=== PATIENT | female | born 2000 | race Two or more races ===

== ENCOUNTER 2023-12-11 15:57 | Emergency (ER) | payer OTHER, SELFPAY ==
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
[2023-12-11 16:38] VITALS: BP 108/69; PULSE 110; RESP 18; TEMP 37.3; O2SAT 99
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
[2023-12-11 17:20] LABS: MANUAL DIFF FLAG NO
[2023-12-11 17:25] LABS: Basophils Percent Auto 0.1 % (0-2); Eosinophils Percent Auto 0.2 % (0-4); Hemoglobin 11.9 g/dl (12.0-16.0); Imm Gran Abs Auto 0.03 X10*3/uL (0.00-0.03); Imm Gran Pct Auto 0.3 % (0.0-0.4); Lymphocytes Absolute Auto 1.1 X10*3/uL (1.2-4.9); Lymphocytes Percent Auto 12.7 % (20-40); Mean Corpuscular HGB Conc 36.1 g/dl (31.0-35.0); Mean Corpuscular Hemoglobin 31.2 pg (27.0-33.0); Mean Corpuscular Volume 86.6 fL (80.0-98.0); Mean Platelet Volume 10.8 fL (9.4-12.3); Monocytes Absolute Auto 0.7 X10*3/uL (0.1-1.2); Monocytes Percent Auto 7.6 % (2-11); Neutrophils Absolute Auto 6.8 x10*3/uL (2.0-8.3); Neutrophils Percent Auto 79.1 % (45-73); Platelet Count 224 X10*3/uL (160-400); Red Blood Count 3.81 X10*6/uL (4.20-5.50); Red Cell Distribution Width 11.9 % (11.0-16.0); White Blood Count 8.6 X10*3/uL (4.8-10.8)
[2023-12-11 17:42] LABS: Alanine Aminotransferase 22 U/L (0-31); Albumin Level 4.2 g/dL (3.5-5.0); Alkaline Phosphatase 62 U/L (39-117); Anion Gap 11 (12-20); Aspartate Amino Transferase 27 U/L (5-31); Bilirubin Total 0.4 mg/dL (0.0-1.0); Blood Urea Nitrogen 5 mg/dL (9-16); Calcium 8.8 mg/dL (8.4-10.2); Carbon Dioxide 23 mmol/L (22-29); Chloride 105 mmol/L (96-108); Creatinine Clr Calc Pharmacy 91.8; Estimated Glomerular Filt Rate > 60; Glucose Random 93 mg/dL (60-115); HCG Quantitative < 2 mIU/mL; Sodium 136 mmol/L (135-145); Total Protein 7.6 g/dL (6.5-8.0)
[2023-12-11 21:25] VITALS: BP 111/66; PULSE 97; RESP 16; TEMP 36.9; O2SAT 99
[2023-12-11 22:09] VITALS: BP 119/75; PULSE 87; RESP 16; TEMP 37.2; O2SAT 99
[2023-12-11] MEDS: 0.9 % Sodium Chloride 1,000 ML 999 ML IVCONT (22:23)
[2023-12-11 22:27] VITALS: BP 110/75; PULSE 94; RESP 18; O2SAT 99
[2023-12-11] MEDS: Ketorolac Tromethamine 30 MG/ML VIAL IVPUSH (23:05)
[2023-12-11] MEDS: Metoclopramide HCl 10 MG/2 ML VIAL IVPUSH (23:05)
[2023-12-11] MEDS: diphenhydrAMINE HCL 50 MG/ML VIAL IVPUSH (23:05)
[2023-12-12 00:18] VITALS: BP 97/54; PULSE 94; RESP 15; TEMP 36.7; O2SAT 99
[2023-12-12 01:36] VITALS: BP 97/54; PULSE 94; RESP 15; TEMP 36.7; O2SAT 99
== END 2023-12-12 01:37 | disposition home or self-care (01) ==
PROVIDERS: Registered Nurse Emergency; Emergency Provider Emergency Medicine; PCP Internal Medicine
DX: G43.909 Migraine, unspecified, not intractable, without status migrainosus (principal); H53.143 Visual discomfort, bilateral; Z79.899 Other long term (current) drug therapy
CPT/HCPCS: 36415; 70450; 80053; 84702; 85025; 96361; 96374; 96375; 99285; J1200; J1885; J2765

== ENCOUNTER 2024-12-05 07:55 | Emergency (ER) | payer OTHER, SELFPAY ==
--- NOTE | ~2024-12-05 | US_ITS ---
EXAMINATION: US PELVIC DUPLEX COMPLETE, US PELVIS HISTORY: RLQ pain, r/o torsion COMPARISON: There are no prior studies available for comparison. TECHNIQUE: Transabdominal real-time 2D zavala-scale ultrasound was performed. The patient declined endovaginal examination. FINDINGS: Uterus: The uterus is normal in size, measuring 9.5 x 2.6 x 3.8 cm. Myometrium has a normal echotexture. No fibroids are identified. Endometrium: The endometrial stripe measures 3 mm in thickness. Right ovary: The right ovary is not visualized. Left ovary: The left ovary measures 2.3 x 2.5 x 2.6 cm. The left ovary is normal in size and echotexture. Normal color and spectral Doppler waveforms are noted in the left ovarian artery and vein. Pelvic fluid: none. US/US pelvic complete IMPRESSION: 1. The right ovary is not identified. The patient declined endovaginal examination. Right ovarian torsion is not excluded. 2. Unremarkable appearing uterus and left ovary which demonstrates normal vascular flow. Electronically signed by: Korey Gooden MD 12/05/2024 10:12 AM EDT
--- NOTE | ~2024-12-05 | CT_ITS ---
EXAMINATION: CT ABDOMEN AND PELVIS WITH CONTRAST CLINICAL INFORMATION: Abdominal pain, right lower quadrant. COMPARISON: None available. TECHNIQUE: Multidetector volumetric images were obtained from the superior aspect of the liver through the pubic symphysis following administration 85 mL of Omnipaque 350 intravenous contrast. Sagittal and coronal reformatted images were obtained on the technologist's workstation. Oral contrast: No This CT examination was performed using dose optimization techniques as appropriate, variously including the following: *Automated exposure control *Adjustment of mA and/or kV according to patient size (this includes techniques or standardized protocols for targeted exams where dose is matched to indication/reason for exam; i.e. extremities or head) *Use of iterative reconstruction technique DLP: 268 mGy-cm FINDINGS: LUNG BASES: No acute airspace disease. LIVER, GALLBLADDER, AND BILIARY TREE: Liver measures 15 cm. No solid or cystic lesion. Main portal vein and hepatic veins and intrahepatic portion of the IVC are patent. Gallbladder is contracted. No pericholecystic fluid collection or gallbladder wall thickening. No intrahepatic or extrahepatic biliary ductal dilatation. PANCREAS: No solid or cystic lesion. No peripancreatic fluid collection. No main pancreatic ductal dilatation. SPLEEN: 9 cm. No solid or cystic lesion. ADRENAL GLANDS: No nodular lesion. KIDNEYS AND URETERS: Right kidney: Decreased enhancement pattern of the renal parenchyma with respect to the contralateral side. There is mild dilatation of the pelvicalyceal system and right ureter. There is a 2 mm calculus in the distal right ureter near the vesicoureteral junction. No renal mass. Left kidney: Normal. BLADDER: Fluid-filled. GASTROINTESTINAL TRACT: Appendix is normal. Collapsed appearance of the large intestine. Superimposed intestinal wall thickening on the large intestine cannot be excluded. No intestinal obstruction pattern. Small amount of ascites in the cul-de-sac. No peripheral enhancing fluid collection in the peritoneal cavity. No pneumoperitoneum. No pneumatosis intestinalis. ABDOMINAL WALL: Metallic piercing in the umbilical's without hernia. LYMPH NODES: No mesenteric or retroperitoneal lymphadenopathy. VASCULAR: No aneurysm or dissection, abdominal aorta. No calcified plaque. PELVIC VISCERA: Dominant follicle in the right adnexa. OSSEOUS STRUCTURES: Sclerosis and the sacroiliac joints. Limbus vertebra, L5. No acute fracture or listhesis. No acute fracture or dislocation in either hip. CT/CT abdomen pelvis w IV con IMPRESSION: 2 mm obstructing calculus distal right ureter resulting in mild hydronephrosis and decreased enhancement pattern of the right kidney. Small amount of free fluid in the cul-de-sac possibly physiologic. Dominant follicle right ovary. Collapsed appearance of the large intestine. Inflammatory bowel disease cannot be excluded.. Fleischner guidelines were followed. Electronically signed by: Warner Mcnair MD 12/05/2024 10:53 AM EDT
--- NOTE | ~2024-12-05 | US_ITS ---
EXAMINATION: US PELVIC DUPLEX COMPLETE, US PELVIS HISTORY: RLQ pain, r/o torsion COMPARISON: There are no prior studies available for comparison. TECHNIQUE: Transabdominal real-time 2D zavala-scale ultrasound was performed. The patient declined endovaginal examination. FINDINGS: Uterus: The uterus is normal in size, measuring 9.5 x 2.6 x 3.8 cm. Myometrium has a normal echotexture. No fibroids are identified. Endometrium: The endometrial stripe measures 3 mm in thickness. Right ovary: The right ovary is not visualized. Left ovary: The left ovary measures 2.3 x 2.5 x 2.6 cm. The left ovary is normal in size and echotexture. Normal color and spectral Doppler waveforms are noted in the left ovarian artery and vein. Pelvic fluid: none. US/US pelvic ovarian doppler IMPRESSION: 1. The right ovary is not identified. The patient declined endovaginal examination. Right ovarian torsion is not excluded. 2. Unremarkable appearing uterus and left ovary which demonstrates normal vascular flow. Electronically signed by: Korey Gooden MD 12/05/2024 10:12 AM EDT
[2024-12-05 08:06] VITALS: BP 118/87; PULSE 103; RESP 20; TEMP 36.3; O2SAT 100; BMI 21.7
--- NOTE | 2024-12-05 08:10 | ED.ABDPAIN ---
HPI - Abdominal Pain General Chief Complaint: Abdominal Pain Stated Complaint: Abdominal Pain Time Seen by Provider: 12/05/24 08:03 Source: patient Mode of arrival: ambulatory Limitations: no limitations History of Present Illness ED Provider: HPI narrative: 24-year-old otherwise healthy no prior history of surgeries, presenting with right lower quadrant pain, nausea no vomiting, currently on her period, no diarrhea no vaginal bleeding or discharge, no fevers or chills, pain is localized to right lower quadrant. Related Data Previous Rx's ?Medication ?Instructions ?Recorded ketorolac 10 mg tablet 10 mg PO Q8H PRN pain #10 tabs 12/12/23 metoclopramide HCl 5 mg tablet 5 mg PO TID PRN nausea and 12/12/23 (Reglan) vomiting #10 tabs acetaminophen 500 mg capsule 1,000 mg (2 x 500 mg) PO Q6H PRN 12/05/24 pain 5 days #20 caps ibuprofen 400 mg tablet 400 mg PO Q6H PRN pain 5 days #20 12/05/24 tabs ondansetron 4 mg disintegrating 4 mg PO Q8H PRN nausea and 12/05/24 tablet vomiting #4 tabs Allergies Allergy/AdvReac Type Severity Reaction Status Date / Time No Known Allergies Allergy Verified 12/05/24 08:08 Review of Systems Constitutional: Reports as per [facility] Social History Social History Advance Directives: Yes Advance Directives Information Provided: Yes Advance Directives on File: No Do you have a plan to hurt others: No Plan Physical Exam ED Exam Exam: General: ?Appears of stated age ? ?PERRLA, EOMI, MMM, ? Neck: Supple, no LAD ? ?CV: RRR, no obvious murmurs appreciated ? ?Resp: ?No wheezing rales rhonchi no stridor moving air well ? Abd: ?Bowel sounds are present, tenderness, voluntary guarding right lower quadrant ? ?MSK: FROM, strength 5/5 all extremities ? Skin: Warm, dry, intact, ? ?Neuro: ?Alert and oriented x3, moving upper and lower extremities symmetrically, no obvious facial asymmetry noted, cranial nerves 2-12 intact Vital Signs: Vital Signs - 24 hr 12/05/24 08:06 12/05/24 11:04 Temperature 97.4 F Pulse Rate 103 H 93 Respiratory Rate 20 18 Blood Pressure 118/87 116/79 Pulse Oximetry 100 98 Oxygen Delivery Method Room Air BMI result Body Mass Index 21.7 Medical Decision Making Medical Decision Making [facility] Narrative: 8:11 AM 12/05/2024 (Dr. Gorge Butler): Ovarian pathology versus appendicitis is highest on my differential, possibly ovarian cysts, etc. currently on her. Though we will check for to make sure no -related emergencies, we will medicate for pain, we will obtain imaging both CT and ultrasound for ovarian flow, disposition to be determined 11:03 AM 12/05/2024 (Dr. Gorge Butler): CT with 2 mm you were vesicular junction stone we will await UA we will medicate for pain otherwise anticipating discharge, ultrasound was not able to visualize the ovary but the CT did not no abnormal ovary and there is 2 mm stone which is most likely cause of the symptoms, correlates to location Differential Diagnosis Differential Diagnoses: The differential diagnosis associated with the presentation includes (Appendicitis, ovarian torsion, hemorrhagic cyst, ectopic , pyelonephritis, renal colic) Admission/Observation Consideration of admission/observation: Escalation of care including admission/observation considered Lab Data [facility] Lab Attestation statement: I reviewed the patient's lab results. 12/05/24 08:15 12/05/24 08:15 Labs: Lab Results 12/05/24 Range/Units 08:15 WBC 5.7 (4.8-10.8) X10*3/uL RBC 4.03 L (4.20-5.50) X10*6/uL Hgb 12.6 (12.0-16.0) g/dl Hct 35.2 L (37.0-47.0) % MCV 87.3 (80.0-98.0) fL MCH 31.3 (27.0-33.0) pg MCHC 35.8 H (31.0-35.0) g/dl RDW 11.8 (11.0-16.0) % Plt Count 243 (160-400) X10*3/uL MPV 10.8 (9.4-12.3) fL Immature Gran % (Auto) 0.2 (0.0-0.4) % Neut % (Auto) 53.2 (45-73) % Lymph % (Auto) 35.7 (20-40) % [place] % (Auto) 9.0 (2-11) % Eos % (Auto) 1.9 (0-4) % Baso % (Auto) 0.0 (0-2) % Lymph # (Auto) 2.0 (1.2-4.9) X10*3/uL [place] # (Auto) 0.5 (0.1-1.2) X10*3/uL Eos # (Auto) 0.1 (0.0-0.4) X10*3/uL Baso # (Auto) 0.0 (0.0-0.2) X10*3/uL Abs Immat Gran (auto) 0.01 (0.00-0.03) X10*3/uL Absolute Neuts (auto) 3.0 (2.0-8.3) x10*3/uL Absolute Nucleated RBC 0.000 (0.0-0.012) X10*3/uL Nucleated RBC % (auto) 0.0 (0.0-0.2) /100WBC Sodium 140 (135-145) mmol/L Potassium 3.3 (3.3-5.1) mmol/L Chloride 108 (96-108) mmol/L Carbon Dioxide 24 (22-29) mmol/L Anion Gap 11 L (12-20) BUN 9 (9-16) mg/dL Creatinine 0.75 (0.5-1.4) mg/dL Estim Creat Clear Calc 83.7 Estimated GFR > 60 Random Glucose 125 H (60-115) mg/dL Lactic Acid 1.5 (0.5-2.0) mmol/L Calcium 9.0 (8.4-10.2) mg/dL Total Bilirubin 0.5 (0.0-1.0) mg/dL AST 21 (5-31) U/L ALT 16 (0-31) U/L Alkaline Phosphatase 56 (39-117) U/L Total Protein 7.5 (6.5-8.0) g/dL Albumin 4.6 (3.5-5.0) g/dL Lipase 16 (8-78) U/L Beta HCG, Quant < 2 mIU/mL Radiology Impression Discussion of test interpretation with radiology: I have reviewed the radiologist's reading. (2 mm obstructing calculus distal right ureter resulting in mild hydronephrosis and decreased enhancement pattern of the right kidney. Small amount of free fluid in the cul-de-sac possibly physiologic. Dominant follicle right ovary. Collapsed appearance of the large intestine. Inflammatory bowel d) Medications Administered Discontinued Medications Generic Name Dose Route Start Last Admin Trade Name Freq PRN Reason Stop Dose Admin Famotidine 20 mg 12/05/24 08:08 12/05/24 08:31 Famotidine 20 Mg Tablet PO 12/05/24 08:09 Not Given ONCE ONE Famotidine 20 mg 12/05/24 08:23 12/05/24 08:36 Famotidine/Pf 20 Mg/2 Ml Vial IVPUSH 12/05/24 08:24 20 mg ONCE ONE Administration Iohexol 100 ml 12/05/24 10:33 12/05/24 10:34 Iohexol 350 Mg/Ml 100 Ml Infus..Btl IV 12/05/24 10:34 85 ml ONCE ONE Administration Ketorolac Tromethamine 15 mg 12/05/24 08:08 12/05/24 08:20 Ketorolac Tromethamine 15 Mg/Ml Vial IVPUSH 12/05/24 08:09 15 mg ONCE ONE Administration Ketorolac Tromethamine 15 mg 12/05/24 10:45 12/05/24 10:59 Ketorolac Tromethamine 15 Mg/Ml Vial IM 12/05/24 10:46 Not Given ONCE ONE Ketorolac Tromethamine 15 mg 12/05/24 10:54 12/05/24 10:59 Ketorolac Tromethamine 15 Mg/Ml Vial IVPUSH 12/05/24 10:55 15 mg ONCE ONE Administration Morphine Sulfate 2 mg 12/05/24 10:50 12/05/24 11:00 Morphine Sulfate 4 Mg/Ml Cartridge IVPUSH 12/05/24 10:51 2 mg ONCE ONE Administration Protocol Ondansetron HCl 4 mg 12/05/24 08:08 12/05/24 08:20 Ondansetron Hcl 4 Mg/2 Ml Vial IVPUSH 12/05/24 08:09 4 mg ONCE ONE Administration Critical Care Time Critical Care Time Critical Care Time: Yes Total Critical Care Time: 32 Attestation: Time is exclusive of separately billable procedures. Time includes: direct patient care, patient reassessment, coordination of patient care, interpretation of data (laboratory data, pulse oximetry, arterial blood gases and chest xrays), review of patient's medical records, medical consultation and documentation of patient care. Procedures excluded from critical care time: central intravenous line placement and electrocardiography. Discharge Plan Discharge Clinical Impression: Renal colic on right side Additional Instructions: I recommend 400 mg ibuprofen every 6 hours around the clock, Zofran 4 mg as needed for nausea and vomiting, Tylenol 975 mg every 6 hours for additional pain control, stay hydrated, as discussed you have small 2 mm kidney stone almost passing into your bladder, follow up with the PCP worsening issues or concerns come back to the ER Prescriptions: New acetaminophen 500 mg capsule 1,000 mg PO Q6H PRN (Reason: pain) 5 Days Qty: 20 0RF ondansetron 4 mg tablet,disintegrating 4 mg PO Q8H PRN (Reason: nausea and vomiting) Qty: 4 0RF ibuprofen 400 mg tablet 400 mg PO Q6H PRN (Reason: pain) 5 Days Qty: 20 0RF No Action ketorolac 10 mg tablet 10 mg PO Q8H PRN (Reason: pain) Qty: 10 0RF Rx Instructions: maximum total duration of 5 days from all oral, intranasal, or parenteral formulations metoclopramide HCl [Reglan] 5 mg tablet 5 mg PO TID PRN (Reason: nausea and vomiting) Qty: 10 0RF Rx Instructions: Take together with ketorolac p.r.n. migraine headaches Print Language: Upper Sorbian
[2024-12-05 08:18] LABS: MANUAL DIFF FLAG NO
[2024-12-05 08:23] LABS: Hematocrit 35.2 % (37.0-47.0); Hemoglobin 12.6 g/dl (12.0-16.0); Imm Gran Abs Auto 0.01 X10*3/uL (0.00-0.03); Imm Gran Pct Auto 0.2 % (0.0-0.4); Lymphocytes Absolute Auto 2.0 X10*3/uL (1.2-4.9); Mean Corpuscular HGB Conc 35.8 g/dl (31.0-35.0); Mean Corpuscular Hemoglobin 31.3 pg (27.0-33.0); Mean Corpuscular Volume 87.3 fL (80.0-98.0); NRBC Abs Auto 0.000 X10*3/uL (0.0-0.012); NRBC Pct Auto 0.0 /100WBC (0.0-0.2); Platelet Count 243 X10*3/uL (160-400); Red Blood Count 4.03 X10*6/uL (4.20-5.50); White Blood Count 5.7 X10*3/uL (4.8-10.8)
[2024-12-05 08:35] LABS: Alanine Aminotransferase 16 U/L (0-31); Albumin Level 4.6 g/dL (3.5-5.0); Alkaline Phosphatase 56 U/L (39-117); Anion Gap 11 (12-20); Aspartate Amino Transferase 21 U/L (5-31); Blood Urea Nitrogen 9 mg/dL (9-16); Calcium 9.0 mg/dL (8.4-10.2); Carbon Dioxide 24 mmol/L (22-29); Chloride 108 mmol/L (96-108); Creatinine Clr Calc Pharmacy 83.7; Estimated Glomerular Filt Rate > 60; Lipase 16 U/L (8-78); Potassium 3.3 mmol/L (3.3-5.1); Sodium 140 mmol/L (135-145); Total Protein 7.5 g/dL (6.5-8.0)
--- OUTSIDE RECORDS SUMMARY | 2024-12-05 08:45 | XMS_ITS | Clinical Summary ---
Author Organization [facility] Address [address] [place] [address] Phone Care Team Providers Care Embryology Professor Name Role Phone Giselle Epperson MD Primary Care Provider [phone] Allergies No known active allergies Medications gabapentin (NEURONTIN) 300 mg capsule Take 1 capsule (300 mg total) by mouth 2 (two) times a day. 5 Active DULoxetine (CYMBALTA) [address] capsule Take 1 capsule (30 mg total) by mouth 2 (two) times a day. Active norethindrone (NORMAN,CHAVO,HEAT HER,MICRONOR) 0.35 mg tabletIndications: Encounter for surveillance of contraceptive pills TAKE 1 TABLET BY MOUTH EVERY DAY 84 tablet 1 5 Active Active Problems Problem Noted Date Diagnosed Date Tachycardia 04/19/2023 Overview (02/08/2024): While under going chemo Irregular menses 09/21/2021 Overview (02/08/2024): Last Assessment & Plan: Patient reassured that irregular menses is expected with use of POPs Pelvic pain 09/21/2021 Overview (02/08/2024): Last Assessment & Plan: UA positive for trace blood, likely contaminated, however culture ordered - will treat as indicated. GC/CT and wet prep collected today. Pelvic US ordered to assess for structural causes of pain. Discussed dysmenorrhea with menses and relief measures Discussed non-contraceptive benefits of BC - patient encouraged to continue with POPs at this time. Discussed potential causes of pelvic pain with the patient including infections, , ovarian cysts, endometriosis, interstitial cystitis, irritable bowel, and MSK etiologies. Briefly reviewed possible treatment options, however will discuss further once pelvic ultrasound has been completed. Discussed relief measures for pain and reviewed warning signs and when to call, including fever, a significant increase in pain that might represent a rupture, torsion, or heavy vaginal bleeding. Patient to follow-up in 3-4 weeks. COVID-19 05/19/2020 Overview (02/08/2024): Positive 05/15/2020 Functional heartburn 05/12/2020 Pneumonia 03/04/2020 Overview (02/08/2024): 02/25 Admitted [facility] costophrenic Sulcus posteriorly D dimer nl Fever deveolped Treated aAbx Augmentin and Azithromycin. 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 Referred to [facility] for further management. 08/02/18 unresectable, started on chemo sorafenib therapy beginning of August 2018. Sees Dr. Christensen at [facility]. Follows at [facility] hem/onc as well. [facility]. 12/30/18- seen at [facility] [place], pain has resolved, mass is getting smaller. Reduced dose of sorafenib. MRI shows smaller mass. F/u 2 months 03/10/2019- MRI shows continued improvement. Refer to PT. F/u 4 months for re- scan. Size is 2.8x1.9x9.1cm 02/25 Last Chemo in December at [facility] 06/07/20- prelim MRI shows disease progression during 9 months off sorafenib. Plan to review at [facility]K conference. 08/2020- MRI shows interval growth and she is having increased symptoms. Option to restart sorafenib, IR procedure or clinical trial of gamma secretase inhibitor. She chose IR procedure. Hypertension 02/11/2018 Overview (02/08/2024): Was having some chest pain which was worse with deep breathing thought to be due to costochondritis. Seen by cardiology on 01/08/18 and had 24 hour ambulatory BP monitor which showed pre-hypertension with normal 24 hour BP measurements but elevated BP load. Recommended 24 hour ambulatory monitor in 1 year and follow up after that test. Started on amlodipine on 09/30/18 Nml echo on 07/25/18. Will have weekly EKGs due to chemo treatment. HTN resolved 1 month after stopping sorafenib Abdominal pain 05/16/2017 Overview (02/08/2024): Chronic abd pain. Seen by GI on 05/15/17. Colonscopy was normal, EGD was positive for H.Pylori. Recommended miralax and senna daily for constipation. Gallbladder ultrasound normal. Most likely due to peptic disease. Doesn't recommend treating H.Pylori because that bacteria decreases acid production, so treating it could make reflux worse. Start omeprazole 40mg daily. F/U 6 wks. 07/17/17: still with abdominal pain, is going to treat H.Pylori and see if that helps her pain. F/U 3 months. 10/15/17 h.pylori was treated but still with abdominal pain. Thinks it could be visceral hyperalgesia. Had ran out of omeprazole for a few months so that was restarted. EKG to be done and if normal will start amitryptilline 10mg qhs. F/U 2 months. If still having pain will do CTscan. 12/05/18 recommended upper endoscopy and abd ultrasound for ongoing abd pain. EGD was normal on 01/03/19. 09/2021 normal labs and endoscopy/colonoscopy . Accommodation spasm, bilateral 01/02/2017 Myopia of both eyes 01/02/2017 Slow transit constipation 11/22/2016 Overview (02/08/2024): Recommended miralax and senna daily for constipation. See abdominal pain below Encounters Date Type Department Care Team Description 11/07/2024 Telephone Adult Medicine [address] [address] Giselle Epperson MD from Last 3 Months Immunizations Immunization Administration Dates Next Due DTaP (Infanrix) 6wks to less than 7yo ,04/25/2003,04/25/2002,02/25,2001 [id number]-SCS-JFE (Pentacel) 2mo to less than 5yo 04/25/2003,04/25/2002,02/25/2002,12/24 HPV 9-valent (Gardisil) 9yo to less than 46yo 11/22/2016 HPV, Quadrivalent 03/13/2013,12/07/2012 Hepatitis A Pediatric (Havri x; Vaqta) 12mo to less than 19yo 06/27/2012,09/05/2011 Hepatitis B (Jnypdgx-S-Tplby , Recombivax HB-Adult) 19yo and older 09/20/2022,04/12/2022,03/10/2022 Hepatitis B Pediatric (Enger ix B; Recombivax HB) to less than 20 yo 04/25/2002,02/25/2002,2001 IPV Inactivated polio (Ipol) 6wks and older 2005,04/25/2002,02/25/2002,12/24 Influenza Quadrivalent, with preservative (Fluzone; Afluria) 6mo and older 11/01/2017 Influenza trivalent, 0.5mL, preservative free (Fluarix; FluLaval; Fluzone) ages 6mo and older (Afluria) 3 years and older 11/09/2022,10/12/2021,11/24/2020,11/27,11/26/2018,11/26/2018 Influenza trivalent, with pr eservative (Fluzone; Afluria) 6mo and older 11/22/2016 MMR, measles mumps and rubel la Live (Priorix; M-M-R II) 12mo and older 2005,10/27/2002 Meningococcal MCV4P 11/23/2017,12/27/2012 Pneumococcal conjugate 13 va lent (Prevnar 13, PCV13) 2mo and older 12/22/2002,04/19/2002,02/08/2002,12/24 Tdap Tetanus diptheria acell ular pertussis (Boostrix; Adacel) 7yo and older 12/29/2022,12/27/2012 Varicella live (Varivax) 12m o and older 09/05/2011,10/27/2002 Surgical History Surgery Date Site/Laterality Comments OTHER SURGICAL HISTORY PROCEDURE: DENIES PREVIOUS SURGERY Medical History Medical History Date Comments Accommodation spasm, bilateral 01/02/2017 D X:Accommodation spasm, bilateral Family history of cardiomyopathy 11/22/2016 DX:Family history of cardiomyopathy History of hypoglycemia 11/22/2016 DX:Histo ry of hypoglycemia History of pyloric stenosis as a child 11/22/2016 DX:History of pyloric stenos is as a child Myopia of both eyes 01/02/2017 DX:Myopia of both eyes Slow transit constipation 11/22/2016 DX:Slo w transit constipation; COMMENT: EGD-colonoscopy performed with normal esopagus and duodenum, with nodularity of antrum. History of Helicobacter pylo ri infection 01/10/2017 DX:History of Helicobacter p ylori infection; COMMENT: 05/11/16 Blood test result = 8. Amoxil 500 mg 1 TID & Zantac GEL 300 mg 1 cap BID Hypertension DX:Hypertension Hypertension DX:Hypertension Desmoid tumor 2016 DX:Desmoid tumor BRCA negative DX:BRCA negative Family History Medical History Relation Name Comments Arthritis Maternal Grandfather Hypertension Maternal Grandfather Mental illness Maternal Grandfather Other: enlarged heart Maternal Grandfather Stroke Maternal Grandfather Thyroid disease Maternal Grandfather Cataracts Maternal Grandmother Hypertension Maternal Grandmother Other: enlarged heart Maternal Grandmother Thyroid disease Maternal Grandmother Other: angina Mother Other: fibromyalgia Mother Thyroid disease Mother Other: bicuspid aortic valve Sister 1 Yerialy [place] n 11/05/08 Blindness Neg Hx Glaucoma Neg Hx Macular degeneration Neg Hx Strabismus Neg Hx Relation Name Status Comments Brother Octavia Martin Alive Father Alive Maternal Grandfather Maternal Grandmother Alive Mother Alive Sister 1 Karsten Marx 11/05/08 Alive Sister 2 Katt Alcaraz Alive Social History Tobacco Use Types Packs/Day Years Used Date Smoking Tobacco: Never Smokeless Tobacco: Never Alcohol Use Standard Drinks/Week Comments Yes 0 (1 standard drink = 0.6 oz pur e alcohol) Comments No Sex and Gender Information Value Date Recorded Sex Assigned at Not on file Legal Sex Female 5:45 AM EST Gender Identity Not on file Sexual Orientation Not on file Obstetrics History Last Filed Vital Signs Vital Sign Reading Time Taken Comments Blood Pressure 88/50 05/27/2024 2:11 PM EDT Pulse 96 05/27/2024 2:11 PM EDT Temperature 36.7 C (98 F) 05/27/2024 2:11 PM EDT Respiratory Rate 17 05/27/2024 2:11 PM EDT Oxygen Saturation 98% 05/27/2024 2:11 PM EDT Inhaled Oxygen Concentration - - Weight 45.4 kg (100 lb) 05/27/2024 2:11 PM EDT Height 152.4 cm (5') 05/27/2024 2:11 PM EDT Body Mass Index 19.53 05/27/2024 2:11 PM EDT Plan of Treatment Health Maintenance Due Date Last Done Comments Meningococcal B Vaccine (1 of 2 - Standard) 2017 HIV Screening 01/14/2022 Hepatitis C Screening 01/14/2022 Social Influencers of Health Screening 01/14/2022 Depression Screening 02/06/2024 Gonorrhea/Chlamydia Screening 05/10/2024 05/11/2023 COVID-19 Vaccine ( season) 2024 03/03/2021, 06/06/2020, 02/10/2020 Influenza Vaccine (#1) 2024 , 10/12/2021, 11/24/2020, Additional history exists Hypertension/CHF/CAD Annual BMP Blood Test 11/03/2025 11/03/2024, 03/03/2024, 01/26/2024, Additional history exists Cervical Cancer Screening: Pap Smear 01/12/2026 01/12/2023, 01/12/2023 Cholesterol Screening (Lipid Panel) 03/14/2027 03/14/2022 DTaP,Tdap,and Td Vaccines (8 - Td or Tdap) 12/29/2032 12/29/2022, 12/27/2012, 2005, Additional history exists RSV Immunization Adult Patients (1 - 1-dose 75+ series) 2076 Pneumococcal Vaccine: Pediatrics (0 to 5 Years) and At-Risk Patients (6 to 49 Years) Completed 12/22/2002, 04/19/2002, 02/08/2002, Additional history exists HIB Vaccines Completed 04/25/2003, 04/06, 02/25/2002, Additional history exists IPV Vaccines Completed 2005, 04/06, 04/25/2002, Additional history exists MMR Vaccines Completed 2005, 10/27/2002 Varicella Vaccines Completed 09/05/2011, 10/27/2002 Hepatitis A Vaccines Completed 06/27/2012, 09/05/19 12 HPV Vaccines Completed 11/22/2016, 07/2013, 12/07/2012 Meningococcal ACWY Vaccine Completed 11/23/2017, Hepatitis B Vaccines Completed 09/20/2022, 04/12/2022, 03/10/2022, Additional history exists RSV Immunization Patients Under 20 months Aged Out No longer eligible based on patient's age to complete this topic Procedures Procedure Name Priority Date/Time Associated Diagnosis Comments BASIC METABOLIC PANEL STAT 01/26/2024 10:14 PM EST GONORRHEA/CHLAMYDIA SCRREENING Routine 05/11/2023 HPV Routine 01/12/2023 LIPID PANEL Routine 03/14/2022 from Last 3 Months or Most Recently Relevant to Health Maintenance Results * Basic metabolic panel (01/26/2024 10:14 PM EST) Sodium 139 133 - 145 mmol/L LAB CHEMISTRY METHOD 01/26/2024 10:40 PM EST [facility] Potassium 3.5 3.5 - 5.5 mmol/L LAB CHEMISTRY METHOD 01/26/2024 10:40 PM [facility] Chloride 107 96 - 110 mmol/L LAB CHEMISTRY METHOD 01/26/2024 10:40 PM [facility] CO2 28 21 - 32 mmol/L LAB CHEMISTRY METHOD 01/26/2024 10:40 PM [facility] Anion Gap 4 3 - 11 LAB CHEMISTRY METHOD 01/26/2024 10:40 PM [facility] Glucose 96 70 - 100 mg/dL LAB CHEMISTRY METHOD 01/26/2024 10:40 PM [facility] BUN 6 5 - 25 mg/dL LAB CHEMISTRY METHOD 01/26/2024 10:40 PM [facility] Creatinine 0.72 0.50 - 1.10 mg/dL LAB CHEMISTRY METHOD 01/26/2024 10:40 PM [facility] eGFR 121 >=60 mL/min/1. 73m2 LAB CHEMISTRY METHOD 01/26/2024 10:40 PM [facility] Comment:Calculation based on the Chronic Kidney Disease Epidemiology Collaboration (CKD-EPI) equation refit without adjustment for race. BUN/Creatinine Ratio 8.3 LAB CHEMISTRY METHOD 01/26/2024 10:40 PM [facility] Calcium 8.8 8.5 - 10.5 mg/dL LAB CHEMISTRY METHOD 01/26/2024 10:40 PM [facility] Blood Venous blood specimen / Unknown Venipuncture / Unknown 01/26/2024 10:14 PM EST 01/26/2024 10:20 PM EST us Cathy SOSA LAB BLOOD ORDERABLES Final Result [facility] [address] [place] [address], * Gonorrhea/Chlamydia Screening (05/11/2023) Pathologist [facility] Gonorrhea/Chla mydia Screening abstracted Historical Provider HEALTH MAINTENANCE Final Result * Cervical Cancer Screening: HPV (01/12/2023) Pathologist [facility] Cervical Cancer Screening: HPV no interpretation , abstracted Historical Provider HEALTH MAINTENANCE Final Result * Lipid panel (03/14/2022) [facility] LDL/HDL Ratio 4 0 - 4 Triglycerides 82 0 - 150 mg/dL Cholesterol 142 0 - 200 mg/dL HDL 40 >=40 mg/dL LDL Cholesterol 86 0 - 100 mg/dL Blood Venous blood specimen / Unknown Historical Provider LAB BLOOD ORDERABLES Yee l Result from Last 3 Months or Most Recently Relevant to Health Maintenance Insurance HEALTH PLAN Care Teams Embryology Professor Relationship Specialty Start Date End Date Giselle Epperson MD [address] [place] [address] PCP - General Internal Medicine 01/26/24
--- OUTSIDE RECORDS SUMMARY | 2024-12-05 08:45 | XMS_ITS | Clinical Summary ---
Author Organization [facility] Address [address] [place] [address] Phone Care Team Providers Care Photo Technologist Name Role Phone Raffi Christensen MD Unavailable [phone] Hannah Khan MD Unavailable [phone] Alexandra Briones RN Unavailable [phone] Kandi Ferrell TRACK REPAIR LABORER Unavailable [phone] Giselle Epperson MD Primary Care Provider [phone] Social History Tobacco Use Types Packs/Day Years Used Date Smoking Tobacco: Never Assessed Education Answer Date Recorded Are you interested in more education? Not on juan e 06/02/2022 Are you concerned about learning? Not on file 06/02/2022 No 06/02/2022 No 06/02/2022 Digital Access Answer Date Recorded No 07/01/2022 No 07/01/2022 No 07/01/2022 Reliable internet access at home? Not on file 07/01/2022 Device with a working camera? Not on file Comments Unknown Sex and Gender Information Value Date Recorded Sex Assigned at Not on file Legal Sex Female 10:50 AM EDT Gender Identity Not on file Sexual Orientation Not on file Plan of Treatment Upcoming Encounters Date Type Department Care Team (Late st Contact Info) Description 02/09/2025 9:00 AM EST Office Visit Pediatric Solid Tumor, [facility] [address] [place] [address], 3rd [place] [address] Raffi Christensen MD [address] [place] [address] [email or web address], TRACK REPAIR LABORER [address] [place] [address] [email or web address] 02/09/2025 9:15 AM EST Office Visit Pediatric Solid Tumor, [facility] [address] [facility], 3rd [place] [address] Raffi Christensen MD [address] [place] [address] [email or web address] Health Maintenance Due Date Last Done Comments DEPRESSION SCREENING 2013 SMOKING Hx and SMOKELESS TOB ACCO SCREENING 2014 CHLAMYDIA SCREENING 2017 MENINGOCOCCAL VACCINES (B) ( 1 of 2 - Standard) 2017 HEPATITIS C SCREENING 10/25/2019 HIV ONE-TIME SCREENING (18-6 5 YEARS) 10/25/2019 PAP SMEAR 2022 INFLUENZA VACCINE (#1) 2024 3, 10/12/2021, 11/24/2020, Additional history exists COVID-19 VACCINE (2024-2 6 season) 2024 03/03/2021, 06/06/2020, 02/10/2020 Adult Td,Tdap Booster 12/29/2032 12/29/2022, 013 PNEUMOCOCCAL VACCINES (0-49 years) Completed 12/22/2002, 04/19/2002, 02/08/2002, Additional history exists HIB VACCINES Completed 04/25/2003, 04/06, 02/25/2002, Additional history exists HEPATITIS A VACCINES Completed 06/27/2012, 09/05/19 12 HPV VACCINES Completed 11/22/2016, 07/2013, 12/07/2012 MENINGOCOCCAL VACCINES (ACWY) Completed 11/23/2017, 12/27/2012 Medical Devices Not on file Insurance HEALTH SAFETY NET PARTIAL HEALTH SAFETY NET PARTIAL HEALTH SAFETY NET PARTIAL HEALTH SAFETY NET PARTIAL HEALTH SAFETY NET PARTIAL HEALTH SAFETY NET PARTIAL Care Teams Photo Technologist Relationship Specialty Start Date End Date Giselle Epperson MD [address] [place] [phone] PCP - General Internal Medicine 05/14/23 Raffi Christensen MD [address] [place] [address] [email or web address] Primary Oncologist Pediatric Hematology and Oncology 08/07/18 Hannah Khan MD [address] [place] [address] [email or web address] Oncologist Pediatrics 08/07/18 Alexandra Briones RN [address] [place] [address] [email or web address] Primary Infusion Nurse 08/07/18 Kandi Ferrell, SUSANA [address] [place] [phone] [email or web address] Nurse Practitioner 09/08/20 Additional Source Comments The information contained in this document represents components of the legal health record. It is not the complete legal health record.[facility]
--- OUTSIDE RECORDS SUMMARY | 2024-12-05 08:45 | XMS_ITS | Encounter Summary ---
Author Organization [facility] Address [address] [place] [address] Phone Care Team Providers Care Independent Beauty Consultant Name Role Phone Yoder Carlos Primary Care Provider [phone] Raffi Christensen MD Unavailable [phone] Kandi Ferrell [facility] Unavailable [phone] Beba Carlos Unavailable YoderCarlos Unavailable Beba Chrismo Unavailable Salud Ford MD Unavailable [phone] Encounter Details Date Type Department Care Team (Latest Contact Info) Description 06/05/2023 Abstract Abdoul Conversion Provider, MD Blade [address] [place] [address] Social History Tobacco Use Types Packs/Day Years Used Date Smoking Tobacco: Never Assessed Passive Smoke Exposure: Never Tobacco Cessation:Counseling Given: Not Answered Comments Unknown Sex and Gender Information Value Date Recorded Sex Assigned at Not on file Legal Sex Female 2:22 AM EDT Gender Identity Not on file Sexual Orientation Not on file documented as of this encounter Plan of Treatment Upcoming Encounters Date Type Department Care Team (Late st Contact Info) Description 02/09/2025 7:30 AM EST Appointment [facility] [address] [place] [phone] 02/09/2025 9:00 AM EST Office Visit [facility] [address] [facility] [address] [place] [address] Raffi Christensen MD [address] [place] [phone] Kandi Ferrell, SUSANA [address] [place] [phone] 02/09/2025 9:15 AM EST Office Visit [facility] Solid Tumor, [facility] [address] [facility], [place] [address] [place] [phone] Raffi Christensen MD [address] [place] [phone] documented as of this encounter Visit Diagnoses Not on filedocumented in this encounter Care Teams Independent Beauty Consultant Relationship Specialty Start Date End Date Carlos Yoder [address] [place] [phone] PCP - General 06/08/23 Carlos Yoder [address] [place] [phone] PCP - Insurance PCP 03/05/23 Carlos Yoder [address] [place] [phone] PCP - DFCIPCP 03/19/23 Carlos Yoder [address] [place] [phone] PCP - Clinical PCP 06/08/23 Raffi Christensen MD [address] [place] [phone] Oncologist Pediatric Hematology/Oncology 06/20/23 Kandi Ferrell CNP [address] [place] [address] Nurse Practitioner Pediatric Hematology/Oncology 06/20/23 Salud Ford MD [address] [place] [phone] Oncologist Pediatric Hematology/Oncology 07/09/23 07/09/23 documented as of this encounter
--- OUTSIDE RECORDS SUMMARY | 2024-12-05 08:46 | XMS_ITS | Encounter Summary ---
Author Organization [facility] Address [address] [place] [address] Phone Care Team Providers Care Distribution District Supervisor Name Role Phone Chris Yoderveto Primary Care Provider [phone] Raffi Christensen MD Unavailable [phone] Kandi Ferrell [facility] Unavailable [phone] Beba Carlos Unavailable YoderChrismo Unavailable Yoder, Chrismo Unavailable Salud Ford MD Unavailable Encounter Details Date Type Department Care Team (Late st Contact Info) Description 07/09/2023 Orders Only [facility] Solid Tumor, [facility] [address] [phone] Salud Ford MD [address] [place] [address] Social History Tobacco Use Types Packs/Day Years Used Date Smoking Tobacco: Never Assessed Passive Smoke Exposure: Never Comments Unknown Sex and Gender Information Value Date Recorded Sex Assigned at Not on file Legal Sex Female 2:22 AM EDT Gender Identity Not on file Sexual Orientation Not on file documented as of this encounter Plan of Treatment Upcoming Encounters Date Type Department Care Team (Late st Contact Info) Description 02/09/2025 7:30 AM EST Appointment [facility] [address] [place] [address] 02/09/2025 9:00 AM EST Office Visit [facility] Solid Tumor, [facility] Disorders [address] [phone] Raffi Christensen MD [address] [place] [address] Kandi Ferrell, SUSANA [address] [place] [phone] 02/09/2025 9:15 AM EST Office Visit [facility] Solid Tumor, [facility] Blood Disorders [address] [phone] Raffi Christensen MD [address] [place] [address] documented as of this encounter Visit Diagnoses Not on filedocumented in this encounter Care Teams Distribution District Supervisor Relationship Specialty Start Date End Date Carlos Yoder [address] [place] [phone] PCP - General 06/08/23 Carlos Yoder [address] [place] [phone] PCP - Insurance PCP 03/05/23 Carlos Yoder [address] [place] [phone] PCP - DFCIPCP 03/19/23 Carlos Yoder [address] [place] [address] PCP - Clinical PCP 06/08/23 Raffi Christensen MD [address] [place] [address] Oncologist Pediatric Hematology/Oncology 06/20/23 Kandi Ferrell CNP [address] [place] [address] Nurse Practitioner Pediatric Hematology/Oncology 06/20/23 Salud Ford MD [address] [place] [phone] Oncologist Pediatric Hematology/Oncology 07/09/23 07/09/23 documented as of this encounter
--- OUTSIDE RECORDS SUMMARY | 2024-12-05 08:46 | XMS_ITS | Encounter Summary ---
Author Organization [facility] spital Address [address] [place] [address] Phone Care Team Providers Care Binder Stripper Machine Name Role Phone Yoder Carlos Primary Care Provider [phone] Raffi Christensen MD Unavailable [phone] Kandi Ferrell ORAL SURGERY TECHNICIAN Unavailable [phone] Yoder Carlos Unavailable Chris Yodermo Unavailable Beba Chrismo Unavailable Encounter Details Date Type Department Care Team (Late st Contact Info) Description 09/04/2023 Orders Only [facility] Solid Tumor, [facility] [address] [place] [address] [place] [phone] Kandi Ferrell, ORAL SURGERY TECHNICIAN [address] [place] [address] Social History Tobacco Use Types Packs/Day Years [...] Description 02/09/2025 7:30 AM EST Appointment [facility] MRI [address] [place] [address] 02/09/2025 9:00 AM EST Office Visit [facility] Solid Tumor, [facility] Disorders [address] [phone] Raffi Christensen MD [address] [place] [phone] Kandi Ferrell, SUSANA [address] [place] [phone] 02/09/2025 9:15 AM EST Office Visit [facility] Solid Tumor, [facility] [address] [phone] Raffi Christensen MD [address] [place] [address] documented as of this encounter Visit Diagnoses Not on filedocumented in this encounter Care Teams Binder Stripper Machine Relationship Specialty Start Date End Date Carlos Yoder [address] [place] [id number] PCP - General 06/08/23 Carlos Yoder [address] [place] [phone] PCP - Insurance PCP 03/05/23 Carlos Yoder [address] [place] [id number] PCP - DFCIPCP 03/19/23 Carlos Yoder [address] [place] [phone] PCP - Clinical PCP 06/08/23 Raffi Christensen MD [address] [place] [address] Oncologist Pediatric Hematology/Oncology 06/20/23 Kandi Ferrell CNP [address] [place] [phone] Nurse Practitioner Pediatric Hematology/Oncology 06/20/23 documented as of this encounter
--- OUTSIDE RECORDS SUMMARY | 2024-12-05 08:46 | XMS_ITS | Encounter Summary ---
Author Organization [facility] spital Address [address] [place] [address] Phone Care Team Providers Care Crib Clerk Name Role Phone Chris Yoderveto Primary Care Provider [phone] Raffi Christensen MD Unavailable [phone] Kandi Ferrell INDUSTRIAL ARTS TEACHER Unavailable [phone] Yoder Chrismo Unavailable Yoder, Chrismo Unavailable Yoder, Chrismo Unavailable Encounter Details Date Type Department Care Team (Late st Contact Info) Description 08/06/2023 Orders Only [facility] Solid Tumor, [facility] [address] [phone] Petra Gunter, INDUSTRIAL ARTS TEACHER [address] [place] [phone] Desmoid fibromatosis (Primary Dx) Social History Tobacco Use Types Packs/Day Years [...] Info) Description 02/09/2025 7:30 AM EST Appointment [facility] [address] [place] [address] 02/09/2025 9:00 AM EST Office Visit [facility] Solid Tumor, [facility] and Blood Disorders [address] [phone] Raffi Christensen MD [address] [place] [phone] Kandi Ferrell, SUSANA [address] [place] [phone] 02/09/2025 9:15 AM EST [facility] [address] [phone] Raffi Christensen MD [address] [place] [phone] documented as of this encounter Visit Diagnoses Diagnosis Desmoid fibromatosis- Primary documented in this encounter Care Teams Crib Clerk Relationship Specialty Start Date End Date Carlos Yoder [address] [place] [id number] PCP - General 06/08/23 Carlos Yoder [address] [place] [phone] PCP - Insurance PCP 03/05/23 Carlos Yoder [address] [place] [phone] PCP - DFCIPCP 03/19/23 Carlos Yoder [address] [place] [phone] PCP - Clinical PCP 06/08/23 Raffi Christensen MD [address] [place] [address] Oncologist Pediatric Hematology/Oncology 06/20/23 Kandi Ferrell CNP [address], [place] [phone] Nurse Practitioner Pediatric Hematology/Oncology 06/20/23 documented as of this encounter
--- OUTSIDE RECORDS SUMMARY | 2024-12-05 08:46 | XMS_ITS | Clinical Summary ---
Author Organization [facility] sp[facility] Address [address] [place] [address] Phone Care Team Providers Care Journeyman Electrician Pv Installer Name Role Phone Beba Carlos Primary Care Provider [phone] Raffi Christensen MD Unavailable [phone] Kandi Ferrell DAM OPERATOR Unavailable [phone] Beba Carlos Unavailable Beba Chrisveto Unavailable Carlos Yoder Unavailable Allergies No known active allergies Medications acetaminophen (Tylenol) 500 mg tablet Take by mouth. 3 Active gabapentin 300 mg capsuleIndication s:Desmoid fibromatosis Take 600 mg in am and 900 mg PM. 90 capsule 11 5 Active DULoxetine, Cymbalta, [address] capsuleIndication s:Desmoid fibromatosis Take 30 mg = 1 capsule by mouth 2 times a day. Do not crush or chew. 60 capsule 11 5 11/04/19 26 Active Active Problems Problem Noted Date Diagnosed Date Swelling of thigh 06/23/2024 Anorexia 03/04/2024 Neuropathic pain of left lower extremity 024 Irregular menses 07/09/2023 Ovarian cyst 07/09/2023 Upper extremity weakness 07/09/2023 Desmoid fibromatosis 08/03/2018 Cancer Staging:Clinical stage from 05/15/2018: Aggressive fibromatosis - Signed by Raffi Christensen MD on 07/09/2023 Neoplasm of uncertain behavi or of soft tissues of lower extremity 06/18/2018 Overview (06/05/2023): 06/18/2018 13:31 - JAMEL HURST, NATALIA Gutierrez Added by [facility] Resolved Problems Problem Noted Date Diagnosed Date Resolved Date Postural hypotension 07/09/2023 024 Encounters Date Type Department Care Team Description 11/03/2024 3:30 PM EDT Office Visit [facility] Solid Tumor, [facility] Cancer [facility] Blood Disorders [place] [address] [place] [address] Raffi Christensen MD Desmoid fibromatosis (Primary Dx); Neuropathic pain of left lower extremity 11/03/2024 3:30 PM EDT Office Visit [facility] Solid Tumor, [facility] Blood Disorders [place] [address] [place] [address] Raffi Christensen MD Miller, Kandi Knox, DAM OPERATOR Desmoid tumor (Primary Dx); Desmoid fibromatosis 11/03/2024 1:39 PM EDT - 11/03/2024 11:59 PM EDT Hospital Encounter [facility] [address] [phone] Raffi Christensen MD Desmoid tumor Discharge Disposition: Home 11/03/2024 12:01 PM EDT - 11/03/2024 1:38 PM EDT Hospital Encounter [facility] MRI [address] [place] [phone] Raffi Christensen MD Connors, James, RT Desmoid tumor; Desmoid fibromatosis Discharge Disposition: Home 11/03/2024 Travel from Last 3 Months Immunizations Immunization Administration Dates Next Due DTaP 2005 DTaP / HiB / IPV 04/25/2003,04/25/2002, 3,2001 HPV, Quadrivalent 03/13/2013,12/07/2012 HPV, Unspecified 11/22/2016 Hep A, Unspecified 06/27/2012,09/05/2011 Hep B, Adolescent or Pediatric 04/25/2002,2002,2001 Hep B, adult 09/20/2022,04/12/2022,03/10/2022 IPV 2005,04/25/2002,2001 Influenza, Unspecified 11/09/2022,2021,11/24/2020,11/28/2019, 11/26/2018,11/01/2017,11/22/2016 MMR 2005,10/27/2002 Meningococcal ACWY, unspecified 11/23/2017,12/27 Pfizer Dupont Cap SARS-CoV-2 03/03/2021 Pfizer Purple Cap SARS-CoV-2 06/06/2020,02/09/19 21 Pneumococcal Conjugate PCV 13 12/22/2002, 003,02/08/2002,2001 Tdap 12/29/2022,12/27/2012 Varicella 09/05/2011,10/27/2002 Social History Tobacco Use Types Packs/Day Years Used Date Smoking Tobacco: Never Assessed Passive Smoke Exposure: Never Tobacco Cessation:Counseling Given: Not Answered Comments Unknown Sex and Gender Information Value Date Recorded Sex Assigned at Not on file Legal Sex Female 2:22 AM EDT Gender Identity Not on file Sexual Orientation Not on file Last Filed Vital Signs Vital Sign Reading Time Taken Comments Blood Pressure 108/65 11/03/2024 2:54 PM EDT Pulse 86 11/03/2024 2:54 PM EDT Temperature 37 C (98.6 F) 11/03/2024 2:54 PM EDT Respiratory Rate 17 11/03/2024 2:54 PM EDT Oxygen Saturation 100% 11/03/2024 2:54 PM EDT Inhaled Oxygen Concentration - - Weight 46.2 kg (101 lb 13.6 oz) 11/03/2024 2:54 PM EDT Height 152.5 cm (5' 0.04 ) 11/03/2024 2:54 PM ED T Body Mass Index 19.87 11/03/2024 2:54 PM EDT Plan of Treatment Upcoming Encounters Date Type Department Care Team (Late st Contact Info) Description 02/09/2025 7:30 AM EST Appointment [facility] MRI [address] [place] [phone] 02/09/2025 9:00 AM EST Office Visit [facility] Solid [facility], [facility] Cancer and Blood Disorders [address] [phone] Raffi Christensen MD [address] [place] [phone] Kandi Ferrell, DAM OPERATOR [address] [place] [phone] 02/09/2025 9:15 AM EST Office Visit [facility] Cancer [facility] Blood Disorders [address] [phone] Raffi Christensen MD [address] [place] [phone] Health Maintenance Due Date Last Done Comments Chlamydia and Gonorrhea Screening 2001 HIV Screening 2001 Meningococcal B Vaccine (1 of 2 - Standard) 2017 Hepatitis C Screening 10/25/2019 Influenza Vaccine (#1) 2024 3, 10/12/2021, 11/24/2020, Additional history exists Anemia Screening 11/03/2029 11/03/2024, , 10/29/2023, Additional history exists DTaP/Tdap/Td Vaccines (8 - Td or Tdap) 12/29/2032 12/29/2022, 12/27/2012, 2005, Additional history exists Pneumococcal Vaccine: Pediatrics (0 to 5 Years) and At-Risk Patients (6 to 49 Years) Completed 12/22/2002, 04/19/2002, 02/08/2002, Additional history exists HIB Vaccines Completed 04/25/2003, 04/06, 02/25/2002, Additional history exists IPV Vaccines Completed 2005, 04/06, 04/25/2002, Additional history exists MMR Vaccines Completed 2005, 10/27/2002 Varicella Vaccines Completed 09/05/2011, 10/27/2002 Hepatitis A Vaccines Completed 06/27/2012, 09/05/19 12 HPV Vaccines Completed 11/22/2016, 07/2013, 12/07/2012 Meningococcal Vaccine Completed 11/23/2017, 013 Hepatitis B Vaccines Completed 09/20/2022, 04/12/2022, 03/10/2022, Additional history exists Rotavirus Vaccines Aged Out No longer eligible based on patient's age to complete this topic Procedures Procedure Name Priority Date/Time Associated Diagnosis Comments XR FEMUR 2+ VW LEFT Routine 11/03/2024 2 :09 PM EDT Desmoid tumor MR LOWER EXTREMITY ENTIRE LEFT W AND WO CONTRAST Routine 11/03/2024 1:28 PM EDT Desmoid tumor CBC W/ AUTO DIFFERENTIAL STAT 11/03/2024 12:35 PM EDT Desmoid tumor BASIC METABOLIC PANEL STAT 11/03/2024 12:35 PM EDT Desmoid tumor MAGNESIUM STAT 11/03/2024 12:35 PM EDT Desmoid tumor PHOSPHORUS STAT 11/03/2024 12:35 PM EDT Desmoid tumor LIVER FUNCTION TESTS (ALT, AST, ALKP,ALB,TP,BILI(T+D) ) Routine 11/03/2024 12:35 PM EDT Desmoid fibromatosis from Last 3 Months Results * XR Femur 2+ Views Left (11/03/2024 2:09 PM EDT) Anatomical Region Laterality Modality Lower Extremities, Femur Left Digital Radiography 11/03/2024 6:17 PM EDT Impressions 11/03/2024 7:02 PM EDT IMPRESSION: Mild posterolateral soft tissue swelling around the left knee, similar compared to prior MRIs but substantially improved compared to the remote radiographs from 2019. END OF IMPRESSION Narrative 11/03/2024 7:02 PM EDT PROCEDURE: XR FEMUR 2+ VW LEFT ACTIONABLE FINDINGS: None INDICATION: 23 yo left popliteal desmoid tumor, evaluation on drug holiday COMPARISON: Same day MRI and remote radiographs from 06/18/2018 TECHNIQUE: Frontal and lateral views of the left femur. FINDINGS: Mild soft tissue swelling is again present along the posterolateral aspect of the left knee, substantially less pronounced when compared to the remote radiographs from 2019. Surgical lamin are again seen in the popliteal soft tissues, less displaced and distracted compared to prior. The femur has an unchanged appearance. No lytic or sclerotic lesions are present. Posterior cortical thickening is unchanged. Numerous growth recovery lines are unchanged. The hip and knee are well aligned. Procedure Note Rani Flynn MD - 11/03/2024 PROCEDURE: XR FEMUR 2+ VW LEFT ACTIONABLE FINDINGS: None INDICATION: 23 yo left popliteal desmoid tumor, evaluation on drugholiday COMPARISON: Same day MRI and remote radiographs from 06/18/2018 TECHNIQUE: Frontal and lateral views of the left femur. FINDINGS: Mild soft tissue swelling is again present along the posterolateral aspectof the left knee, substantially less pronounced when compared to theremote radiographs from 2019. Surgical lamin are again seen in thepopliteal soft tissues, less displaced and distracted compared to prior. The femur has an unchanged appearance. No lytic or sclerotic lesions arepresent. Posterior cortical thickening is unchanged. Numerous growthrecovery lines are unchanged. The hip and knee are well aligned. IMPRESSION IMPRESSION: Mild posterolateral soft tissue swelling around the left knee,similar compared to prior MRIs but substantially improved compared to theremote radiographs from 2019. END OF IMPRESSION us Kandi Ferrell DAM OPERATOR IMG XR PROCEDURES Final R esult * MR Lower Extremity Entire Left W And WO Contrast (11/03/2024 1:28 PM EDT) Anatomical Region Laterality Modality Lower Extremities, Femur Left Magneti c Resonance 11/03/2024 12:5 5 PM EDT Impressions 11/03/2024 4:05 PM EDT IMPRESSION: Elongated desmoid tumor extending from the posterior aspect of the proximal left femoral shaft to the level of the mid calf, predominantly low T1 and T2 in signal intensity. However, a flat curvilinear crescentic more active component that is heterogeneous enhancing extends along the posterior margin of the lateral gastrocnemius muscle, which appears larger in size when compared to the prior study. END OF IMPRESSION Narrative 11/03/2024 4:05 PM EDT PROCEDURE: MR LOWER EXTREMITY ENTIRE LEFT W AND WO CONTRAST ACTIONABLE FINDINGS: Actionable INDICATION: 23 yo left popliteal desmoid tumor, evaluation on drug holiday COMPARISON: June 23, 2024 MRI. TECHNIQUE: Multiplanar multisequence MRI with and without intravenous contrast was obtained of the left lower extremity, centered over the knee. FINDINGS: BONES: Normal marrow signal. There is no bone marrow edema. No fracture is seen. JOINTS: Limited evaluation of intraarticular structures give technique. No joint effusion or synovitis. SOFT TISSUES: An elongated irregular shaped desmoid tumor is seen posterior to the left femur, extending from the level of the proximal femoral shaft to the mid calf, with a cross-sectional size of this tumor measuring 4.1 x 1.5 cm at the level of the popliteal fossa. The majority of this tumor is T1 and T2 dark. However, a somewhat flat curvilinear crescentic component extends along the posterior margin of the lateral gastrocnemius muscle. This component consists of 2 adjacent enhancing nodules, suggestive of increased activity. A 1.8 x 1.6 x 2.1 cm heterogeneous enhancing nodule that is situated just posterior to the lateral femoral condyle (6:40, 4:10), previously measuring 1.4 x 1.2 x 1.7 cm, larger in size. More inferiorly, at the level of the proximal tibial metaphysis, another enhancing nodular component measures 3.7 x 1.8 x 1.6 cm in size, which was only partially imaged on the prior study. The sciatic nerve and the common peroneal again appear enlarged and edematous, likely representing neuritis. The muscles are preserved, with normal bulk. Procedure Note Denny Lemus MD - 11/03/2024 PROCEDURE: MR LOWER EXTREMITY ENTIRE LEFT W AND WO CONTRAST ACTIONABLE FINDINGS: Actionable INDICATION: 23 yo left popliteal desmoid tumor, evaluation on drugholiday COMPARISON: June 23, 2024 MRI. TECHNIQUE: Multiplanar multisequence MRI with and without intravenouscontrast was obtained of the left lower extremity, centered over theknee. FINDINGS: BONES: Normal marrow signal. There is no bone marrow edema. No fracture isseen. JOINTS: Limited evaluation of intraarticular structures give technique. Nojoint effusion or synovitis. SOFT TISSUES: An elongated irregular shaped desmoid tumor is seenposterior to the left femur, extending from the level of the proximalfemoral shaft to the mid calf, with a cross-sectional size of this tumormeasuring 4.1 x 1.5 cm at the level of the popliteal fossa. The majorityof this tumor is T1 and T2 dark. However, a somewhat flat curvilinearcrescentic component extends along the posterior margin of the lateralgastrocnemius muscle. This component consists of 2 adjacent enhancingnodules, suggestive of increased activity. A 1.8 x 1.6 x 2.1 cmheterogeneous enhancing nodule that is situated just posterior to thelateral femoral condyle (6:40, 4:10), previously measuring 1.4 x 1.2 x 1.7cm, larger in size. More inferiorly, at the level of the proximal tibialmetaphysis, another enhancing nodular component measures 3.7 x 1.8 x 1.6cm in size, which was only partially imaged on the prior study. The sciatic nerve and the common peroneal again appear enlarged andedematous, likely representing neuritis. The muscles are preserved, with normal bulk. IMPRESSION IMPRESSION: Elongated desmoid tumor extending from the posterior aspect of theproximal left femoral shaft to the level of the mid calf, predominantlylow T1 and T2 in signal intensity. However, a flat curvilinear crescenticmore active component that is heterogeneous enhancing extends along theposterior margin of the lateral gastrocnemius muscle, which appears largerin size when compared to the prior study. END OF IMPRESSION Kandi Ferrell CNP [facility] MRI PROCEDURES Final Result * (ABNORMAL) Complete Blood Count with Differential (11/03/2024 12:35 PM EDT) WBC 8.07 4.94 - 10.04 K cells/uL LAB HEMATOLOGY METHOD 11/03/2024 12:50 PM EDT [facility] RBC 4.05 4.03 - 4.91 M cells/uL LAB HEMATOLOGY METHOD 11/03/2024 12:50 PM EDT [facility] Hemoglobin 12.5 11.4 - 14.8 g/dL LAB HEMATOLOGY METHOD 11/03/2024 12:50 PM EDT [facility] Hematocrit 35.8 35.5 - 44.6 % LAB HEMATOLOGY METHOD 11/03/2024 12:50 PM EDT [facility] MCV 88.4 80.7 - 93.7 fL LAB HEMATOLOGY METHOD 11/03/2024 12:50 PM EDT [facility] MCH 30.9 25.7 - 31.2 pg LAB HEMATOLOGY METHOD 11/03/2024 12:50 PM EDT [facility] MCHC 34.9(H) 31.3 - 34.0 g/dL LAB HEMATOLOGY METHOD 11/03/2024 12:50 PM EDT [facility] RDW 12.2 11.9 - 14.8 % LAB HEMATOLOGY METHOD 11/03/2024 12:50 PM EDT [facility] Platelets 240 150 - 450 K cells/uL LAB HEMATOLOGY METHOD 11/03/2024 12:50 PM EDT [facility] MPV 11.1 9.6 - 11.9 fL LAB HEMATOLOGY METHOD 11/03/2024 12:50 PM EDT [facility] Nucleated RBCs % 0.0 % LAB HEMATOLOGY METHOD 11/03/2024 12:50 PM EDT [facility] Absolute Nucleated RBC Count 0.00 K cells/uL LAB HEMATOLOGY METHOD 11/03/2024 12:50 PM EDT [facility] Neutrophils and Bands % 68.6 46.0 - 68.6 % LAB HEMATOLOGY METHOD 11/03/2024 12:50 PM EDT [facility] Lymphocytes % 22.8 21.8 - 42.1 % LAB HEMATOLOGY METHOD 11/03/2024 12:50 PM EDT [facility] Monocytes % 7.3 5.6 - 10.2 % LAB HEMATOLOGY METHOD 11/03/2024 12:50 PM EDT [facility] Eosinophils % 1.0 0.6 - 3.8 % LAB HEMATOLOGY METHOD 11/03/2024 12:50 PM EDT [facility] Basophils % 0.1(L) 0.3 - 0.9 % LAB HEMATOLOGY METHOD 11/03/2024 12:50 PM EDT [facility] Immature Granulocytes % 0.2 0.2 - 0.5 % LAB HEMATOLOGY METHOD 11/03/2024 12:50 PM EDT [facility] Absolute Neutrophil Count 5.53 2.43 - 6.42 K cells/uL LAB HEMATOLOGY METHOD 11/03/2024 12:50 PM EDT [facility] Absolute Lymphocyte Count 1.84 1.51 - 2.99 K cells/uL LAB HEMATOLOGY METHOD 11/03/2024 12:50 PM EDT [facility] Absolute Monocyte Count 0.59 0.36 - 0.77 K cells/uL LAB HEMATOLOGY METHOD 11/03/2024 12:50 PM EDT [facility] Absolute Eosinophil Count 0.08 0.04 - 0.27 K cells/uL LAB HEMATOLOGY METHOD 11/03/2024 12:50 PM EDT [facility] Absolute Basophil Count 0.01(L) 0.02 - 0.06 K cells/uL LAB HEMATOLOGY METHOD 11/03/2024 12:50 PM EDT [facility] Absolute Immature Granulocyte Count 0.02 0.01 - 0.04 K cells/uL LAB HEMATOLOGY METHOD 11/03/2024 12:50 PM EDT [facility] Blood Venous structure / Unknown Venipuncture / Unknown 11/03/2024 12:35 PM EDT 11/03/2024 12:41 PM EDT Kandi Ferrell [facility] LAB BLOOD ORDERABLES Yee roberts Result Performing Organization Address City/State/[facility] Co de Phone Number [address] [address], * Liver Function Tests (ALT, AST, AlkP,Alb,TP,Bili(T+D)) (11/03/2024 12:35 PM EDT) Total Bilirubin 0.7 0.3 - 1.2 mg/dL 11/03/2024 1:25 PM EDT [facility] ALT (SGPT) 15 3 - 30 unit/L 11/03/2024 1:25 PM EDT [facility] Albumin 4.4 3.0 - 4.6 g/dL 11/03/2024 1:25 PM EDT [facility] Alkaline Phosphatase 56 30 - 120 unit/L 11/03/2024 1:25 PM EDT [facility] Total Protein 7.5 5.5 - 8.2 g/dL 11/03/2024 1:25 PM EDT [facility] Bilirubin, Direct 0.3 <=0.4 mg/dL 11/03/2024 1:25 PM EDT [facility] AST 22 2 - 40 unit/L 11/03/2024 1:25 PM EDT [facility] Blood Venous structure / Unknown Venipuncture / Unknown 11/03/2024 12:35 PM EDT 11/03/2024 12:41 PM EDT Kandi Ferrell DAM OPERATOR LAB BLOOD [place]AB[place] [address], * Phosphorus, Plasma (11/03/2024 12:35 PM EDT) Phosphorus 2.7 2.7 - 4.9 mg/dL 11/03/2024 1:24 PM EDT [facility] Blood Venous structure / Unknown Venipuncture / Unknown 11/03/2024 12:35 PM EDT 11/03/2024 12:41 PM EDT Kandi Ferrell DAM OPERATOR LAB BLOOD [place]ABLES [place] [address], * Magnesium (11/03/2024 12:35 PM EDT) Magnesium 2.2 1.6 - 2.6 mg/dL 11/03/2024 1:24 PM EDT [facility] Blood Venous structure / Unknown Venipuncture / Unknown 11/03/2024 12:35 PM EDT 11/03/2024 12:41 PM EDT Kandi Ferrell CNP LAB BLOOD ORDERABLES Yee l Result [facility] [address] [place] [address], * Basic Metabolic Panel (Na, K, Cl, CO2, BUN, CR, GLU, Ca) (11/03/2024 12:35 PM EDT) Pathologist [facility] Sodium 138 135 - 148 mmol/L LAB CHEMISTRY METHOD 11/03/2024 1:25 PM EDT [facility] Potassium 3.44 3.20 - 4.50 mmol/L LAB CHEMISTRY METHOD 11/03/2024 1:25 PM EDT [facility] Chloride 104 96 - 109 mmol/L LAB CHEMISTRY METHOD 11/03/2024 1:25 PM EDT [facility] CO2 23 22 - 30 mmol/L 11/03/2024 1:25 PM EDT [facility] Anion Gap 11.7 7.0 - 14.0 mmol/L 11/03/2024 1:25 PM EDT [facility] BUN 7 7 - 18 mg/dL 11/03/2024 1:25 PM EDT [facility] Creatinine 0.59 0.50 - 1.20 mg/dL 11/03/2024 1:25 PM EDT [facility] Glucose 104 70 - 199 mg/dL 11/03/2024 1:25 PM EDT [facility] Calcium 8.9 8.4 - 10.5 mg/dL 11/03/2024 1:25 PM EDT [facility] eGFR >90.0 >60.0 mL/min/1.73 m*2 11/03/2024 1:25 PM EDT [facility] Blood Venous structure / Unknown Venipuncture / Unknown 11/03/2024 12:35 PM EDT 11/03/2024 12:41 PM EDT Kandi Ferrell DAM OPERATOR LAB BLOOD ORDERABLES Yee roberts Result [facility] [address] [place] [address], [place] [phone] from Last 3 Months Insurance [employer] on file [employer] on file Care Teams Journeyman Electrician Pv Installer Relationship Specialty Start Date End Date Carlos Yoder [address] [place] [phone] PCP - General 06/08/23 Carlos Yoder [address] [place] [phone] PCP - Insurance PCP 03/05/23 Carlos Yoder [address] [place] [id number] PCP - DFCIPCP 03/19/23 Carlos Yoder [address] [place] [id number] PCP - Clinical PCP 06/08/23 Raffi Christensen MD [address] [place] [phone] Oncologist Pediatric Hematology/Oncology 06/20/23 Kandi Ferrell CNP [address] [place] [phone] Nurse Practitioner Pediatric Hematology/Oncology 06/20/23
--- OUTSIDE RECORDS SUMMARY | 2024-12-05 08:46 | XMS_ITS | Encounter Summary ---
Author Organization [facility] Address [address] [place] [address] Phone Care Team Providers Care Computer Salesperson Retail Name Role Phone Beba Carlos Primary Care Provider [phone] Raffi Christensen MD Unavailable [phone] Kandi Ferrell PROFESSOR OF CRIMINAL JUSTICE Unavailable [phone] Yoder Carlos Unavailable Chris Yodermo Unavailable Beba Chrismo Unavailable Encounter Details Date Type Department Care Team (Late st Contact Info) Description 07/16/2023 Orders Only [facility] Solid Tumor, [facility] [address] [place] [phone] Kandi Ferrell, PROFESSOR OF CRIMINAL JUSTICE [address] [place] [phone] Social History Tobacco Use Types [...] Info) Description 02/09/2025 7:30 AM EST Appointment [facility] MRI [address] [place] [phone] 02/09/2025 9:00 AM EST Office Visit [facility] Solid Tumor, [facility] Cancer [facility] Blood Disorders [address] [phone] Raffi Christensen MD [address] [place] [address] Kandi Ferrell, SUSANA [address] [place] [phone] 02/09/2025 9:15 AM EST Office Visit [facility] Solid Tumor, [facility] Blood Disorders [address] [phone] Raffi Christensen MD [address] [place] [phone] documented as of this encounter Visit Diagnoses Not on filedocumented in this encounter Care Teams Computer Salesperson Retail Relationship Specialty Start Date End Date Carlos Yoder [address] [place] [phone] PCP - General 06/08/23 Carlos Yoder [address] [place] [phone] PCP - Insurance PCP 03/05/23 Carlos Yoder [address] [place] [phone] PCP - DFCIPCP 03/19/23 Carlos Yoder [address] [place] [phone] PCP - Clinical PCP 06/08/23 Raffi Christensen MD [address] [place] [address] Oncologist Pediatric Hematology/Oncology 06/20/23 Kandi Ferrell CNP [address] [place] [phone] Nurse Practitioner Pediatric Hematology/Oncology 06/20/23 documented as of this encounter
--- OUTSIDE RECORDS SUMMARY | 2024-12-05 08:46 | XMS_ITS | Encounter Summary ---
Author Organization [facility] spital Address [address] [place] [address] Phone Care Team Providers Care Vehicle Controls Engineer Name Role Phone Beba Carlos Primary Care Provider [phone] Raffi Christensen MD Unavailable [phone] Kandi Ferrell MENTAL HEALTH PROFESSIONAL Unavailable [phone] Yoder Carlos Unavailable Chris Yodermo Unavailable Beba Chrismo Unavailable Encounter Details Date Type Department Care Team (Late st Contact Info) Description 08/20/2023 Orders Only [facility], [facility] [address] [place] [phone] Kandi Ferrell, MENTAL HEALTH PROFESSIONAL [address] [place] [address] Social History Tobacco Use Types [...] Info) Description 02/09/2025 7:30 AM EST Appointment [facility] MRI [address] [place] [address] 02/09/2025 9:00 AM EST Office Visit [facility], [facility] [address] [phone] Raffi Christensen MD [address] [place] [phone] Kandi Ferrell, SUSANA [address] [place] [phone] 02/09/2025 9:15 AM EST Office Visit [facility], [facility] [address] [phone] Raffi Christensen MD [address] [place] [phone] documented as of this encounter Visit Diagnoses Not on filedocumented in this encounter Care Teams Vehicle Controls Engineer Relationship Specialty Start Date End Date Carlos Yoder [address] [place] [phone] PCP - General 06/08/23 Carlos Yoder [address] [place] [phone] PCP - Insurance PCP 03/05/23 Carlos Yoder [address] [place] [phone] PCP - DFCIPCP 03/19/23 Carlos Yoder [address] [place] [phone] PCP - Clinical PCP 06/08/23 Raffi Christensen MD [address] [place] [address] Oncologist Pediatric Hematology/Oncology 06/20/23 Kandi Ferrell CNP [address] [place] [phone] Nurse Practitioner Pediatric Hematology/Oncology 06/20/23 documented as of this encounter
--- OUTSIDE RECORDS SUMMARY | 2024-12-05 08:46 | XMS_ITS | Encounter Summary ---
Author Organization [facility] sp[facility] Address [address] [place] [address] Phone Care Team Providers Care Funeral Car Chauffeur Name Role Phone Yoder Carlos Primary Care Provider [phone] Raffi Christensen MD Unavailable Kandi Ferrell ASSOCIATE TEAM PHYSICIAN Unavailable Yoder Carlos Unavailable Chris Yodermo Unavailable Beba Chrismo Unavailable Encounter Details Date Type Department Care Team (Late st Contact Info) Description 10/22/2023 Orders Only [facility], [facility] [address] [place] [address] Kandi Ferrell, ASSOCIATE TEAM PHYSICIAN [address] [place] [address] Desmoid tumor (Primary Dx) Social History Tobacco Use Types [...] Info) Description 02/09/2025 7:30 AM EST Appointment [facility] MRI [address] [place] [address] 02/09/2025 9:00 AM EST Office Visit [facility], [facility] and Blood Disorders [address] [phone] Raffi Christensen MD [address] [place] [phone] Kandi Ferrell, SUSANA [address] [place] [phone] 02/09/2025 9:15 AM EST Office Visit [facility] Solid Tumor, [facility] Blood Disorders [address] [phone] Raffi Christensen MD [address] [place] [phone] documented as of this encounter Visit Diagnoses Diagnosis 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 documented in this encounter Care Teams Funeral Car Chauffeur Relationship Specialty Start Date End Date Carlos Yoder [address] [place] [phone] PCP - General 06/08/23 Carlos Yoder [address] [place] [phone] PCP - Insurance PCP 03/05/23 Carlos Yoder [address] [place] [phone] PCP - DFCIPCP 03/19/23 Carlos Yoder [address] [place] [phone] PCP - Clinical PCP 06/08/23 Raffi Christensen MD [address] [place] [phone] Oncologist Pediatric Hematology/Oncology 06/20/23 Kandi Ferrell CNP [address] [place] [address] [phone] Nurse Practitioner Pediatric Hematology/Oncology 06/20/23 documented as of this encounter
[2024-12-05] MEDS: iohexoL 350 MG/ML 100 ML INFUS..BTL IV (10:34)
[2024-12-05 11:04] VITALS: BP 116/79; PULSE 93; RESP 18; O2SAT 98
[2024-12-05 11:40] LABS: Appearance Urine Clear; Glucose Urine UA Negative (Negative); PH 7.5 (5.0-9.0); Specific Gravity - Urine >= 1.030 (1.005-1.025); UMIC TRIGGER UACC YES
[2024-12-05 13:03] VITALS: BP 116/79; PULSE 93; RESP 18; TEMP 36.5; O2SAT 98
== END 2024-12-05 13:04 | disposition home or self-care (01) ==
PROVIDERS: Emergency Provider Emergency Medicine; PCP Internal Medicine
DX: N23 Unspecified renal colic (principal); N20.2 Calculus of kidney with calculus of ureter; R11.0 Nausea
CPT/HCPCS: 36415; 74177; 76856; 80053; 81001; 83605; 83690; 84702; 85025; 93975; 96372; 96374; 96375; 96376; 99284; J1308; J1885; J2270; J2405; Q9967

== ENCOUNTER → 2024-12-05 08:08 | Outpatient (BNV) | payer SELFPAY | PROVIDERS: Emergency Provider Emergency Medicine; PCP Internal Medicine; Visit Provider Radiology Diagnostic Radiology | DX: N13.2 Hydronephrosis with renal and ureteral calculous obstruction (principal); R10.31 Right lower quadrant pain | CPT/HCPCS: 74177; 93975 ==